=== PATIENT | female | born 1995 | race Caucasian/White ===

== ENCOUNTER 2018-10-30 08:54 | Emergency (ER) | payer OTHER ==
[~2018-10-30] VITALS: Ht 147.3 cm; Wt 73.9 kg
[2018-10-30 08:59] VITALS: BP 134/86; Ht 147.3 cm; Wt 73.9 kg
== END 2018-10-30 09:21 | disposition home or self-care (01) ==
LOC: ED 08:54
DX: J02.9 Acute pharyngitis, unspecified (principal)